=== PATIENT | male | born 1985 | race Two or more races ===

== ENCOUNTER 2023-06-16 08:54 | Day surgery (SDC) | payer MEDICAID, SELFPAY ==
[2023-06-16] MEDS: LACTATED RINGERS 1000ML 1,000 ML 100 ML IV (09:08)
[2023-06-16 09:13] VITALS: BP 125/71; PULSE 53; RESP 18; TEMP 36.3; O2SAT 97; BMI 34.3
--- NOTE | 2023-06-16 10:24 | EXP.ANES.CKL ---
[facility] Disclaimer: The information contained in this section may have been updated after the patient was seen, as this information can be updated by other users. Medical History Hx of hiatal hernia Surgical History History of repair of hiatal hernia Family History Mother Diabetes Social History Smoking Status: Never smoker alcohol intake: never substance use type: denies use current occupational status: employed Travel in the last 8 weeks: None adopted: No caregiver/support person: No foster care: No household members: spouse housing: house lives independently: No marital status: service: No [employer]: No pets and animals: No Hx Recent Travel: No sexually active: Yes caffeine: Yes [facility] Anesthesia Checklist Patient Identification Patient Identification: Arm Band and Verbal (Name & ) Structural Data Admitted From: Home Planned Operative Procedure/s: EGD dilation Consent for Planned Operative Procedure(s) Verified: Yes NPO Status Verified Time NPO: 00:00 Airway Assessment Mallampati Score:: Class II C-Spine Mobility Assessed: Yes TMJ Mobility Assessed: Yes Dentition: Good Dentition Neurological Assessment Level of Consciousness: Awake Hx Seizures: No Numbness or tingling in extremities: No Anesthesia Plan Anesthesia Risk discussed: Yes Anesthesia Plan: Verified ASA Class: II Anesthesia Type: MAC
[2023-06-16 10:30] VITALS: O2SAT 98
--- NOTE | 2023-06-16 10:36 | HMH.SCOPE ---
Procedure: Date: 06/16/23 Patient Date of :: 1985 Procedure Performed:: EGD & biopsies, bougie dilation Indications:: Dyspepsia, History of H.pylori infections Performing Provider:: Yony Cooper MD Referring Provider:: Nancie Cooper APRN Sedation:: Propofol Procedure:: The gastroscope was gently passed through the incisoral orifice into the oral cavity and under direct visualization the esophagus was intubated. The endoscope was passed down the esophagus, through the stomach, and into the duodenum. Color, texture, mucosa, and anatomy of the esophagus, stomach, and duodenum were carefully examined with the scope. Findings:: Oropharynx: normal Esophagus: normal EG Junction: intact with previous fundelplication noted. Empiric bougie dilation performed. 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
[2023-06-16 10:38] VITALS: BP 106/61; PULSE 101; RESP 10; TEMP 36.1; O2SAT 96
[2023-06-16 10:48] VITALS: BP 102/63; PULSE 78; RESP 12; O2SAT 5
[2023-06-16 10:58] VITALS: BP 109/69; PULSE 72; RESP 12; O2SAT 96
[2023-06-16 11:08] VITALS: BP 110/78; PULSE 77; RESP 16; O2SAT 98
--- NOTE | 2023-06-16 11:49 | SUR.PHASEII ---
1046: Oral airway placed in postop upon arrival to [facility] by anesthesia Christina MCKEON. O2sat 68% room air before placing airway and nasal cannula at 5L. O2 sat up to 95% with intervention. Will continue to monitor.
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
== END 2023-06-16 11:15 | disposition home or self-care (01) ==
PROVIDERS: Visit Provider Internal Medicine Gastroenterology
PROC: 0DJ08ZZ Inspection of Upper Intestinal Tract, Via Natural or Artificial Opening Endoscopic (ICD-10-PCS; CPT 43235; principal; 2023-06-16 10:00)
DX: R10.13 Epigastric pain (principal); Z86.19 Personal history of other infectious and parasitic diseases; K29.80 Duodenitis without bleeding; K29.50 Unspecified chronic gastritis without bleeding
CPT/HCPCS: 43239; 43248; J2704

== ENCOUNTER 2024-10-03 11:21 | Day surgery (SDC) | payer MEDICAID, SELFPAY ==
[2024-10-01 17:22] VITALS: BMI 36.4
--- NOTE | 2024-10-03 11:31 | P.HP_ITS ---
History of Present Illness *Admission Date: 10/03/24 *Reason for visit:: Epigastric/left upper quadrant abdominal pain *History of present illness: Mr. Smyth is a 39-year-old gentleman is here for diagnostic EGD. The patient reports bloating, epigastric pain and left upper quadrant abdominal pain. He did have a prior Jesus fundoplication and feels as if he cannot belch. He did have an EGD with Dr. Cooper. The examination is deemed medically necessary for diagnostic EGD. The patient has been seen, interviewed and examined prior to the procedure by both myself and the anesthesia provider. [facility] Disclaimer: The information contained in this section may have been updated after the patient was seen, as this information can be updated by other users. Medical History Hx of hiatal hernia Surgical History History of repair of hiatal hernia Family History Mother Diabetes Social History (Updated 10/03/24 @ 12:30 by Bertha Cage RN) Smoking Status: Never smoker alcohol intake: never substance use type: denies use current occupational status: employed Travel in the last 8 weeks?: None adopted: No caregiver/support person: No foster care: No household members: spouse housing: house lives independently: No marital status: service: No fpc: No pets and animals: No Hx Recent Travel: No sexually active: Yes caffeine: Yes Have you lived/traveled outside [place] in past 30 days?: No Contact w/someone who lives/traveled outside US past 30 days?: No Exposure to someone with infectious disease in past 14 days?: No Do you have a fever (greater than 100.4 F or 38 C)?: No Have you tested positive for COVID-19?: No Exposed to someone with COVID-19 in past 14 days?: No Do you have a sore throat?: No Do you have a cough?: No Do you have any weakness?: No Are you experiencing any nausea/vomitting?: No Do you have any diarrhea?: No Are you experiencing any unusual bleeding?: No Do you have any muscle aches/pain?: No Do you have any abdominal pain?: No Are you experiencing loss of taste or smell?: No Other Medical History Have you received the Pneumonia Vaccine: No Review of Systems Review of Systems Review of systems (narrative): Negative *Cardiovascular Comments: Negative *Gastrointestinal Comments: Negative *Genitourinary Comments: Negative *Musculoskeletal Comments: Negative *Neurologic Comments: Negative Meds Home Medications and Allergies Home Medications ?Medication ?Instructions ?Recorded ?Confirmed ?Type No Known Home Medications 09/20/24 06/0 06/26 History New Prescriptions to Start Prescriptions: Allergies Allergy/AdvReac Type Severity Reaction Status Date / Time No Known Allergies Allergy Verified 09/20/24 09:36 Exam Data for Last 24 hours I & O for Last 24 hours: Intake & Output 09/30/24 10/01/24 10/02/24 10/03/24 23:59 23:59 23:59 23:59 Weight 226 lb *Routine HEENT Exam Head: Present normocephalic Eye: Present EOMI and PERRL ENT: Present mucous membranes moist *Routine Neck Exam Neck: Present supple *Routine Respiratory Exam Respiratory: Present CTA bilaterally *Routine Cardiovascular Exam Cardiovascular: Present RRR *Routine Abdominal Exam Abdominal: Present soft and normoactive bowel sounds; Absent tenderness *Routine Rectal Exam Rectal:: deferred *Routine Genitalia Exam Genitalia:: deferred *Routine Extremities Exam Extremities: Absent cyanosis, clubbing or edema *Routine Skin Exam Skin: Present warm; Absent rash *Routine Neurological Exam Neurological: Present alert and oriented X3 Assessment and Plan *Assessment and plan (1) LUQ pain: Status: Acute Category: Medical Code(s): R10.12 - Left upper quadrant pain (2) Bloating: Status: Acute Category: Medical Code(s): R14.0 - Abdominal distension (gaseous) (3) Epigastric pain: Status: Acute Category: Medical Code(s): R10.13 - Epigastric pain Plan A/P: 1. Left upper quadrant abdominal pain and some epigastric pain with bloating is the preprocedural diagnosis. The patient will be anesthetized/sedated using MAC sedation. The patient has been seen and examined. Cardiac and lung assessment prior to the examination is stable. Proceed with planned diagnostic EGD.
[2024-10-03 12:31] VITALS: BP 130/86; PULSE 55; RESP 16; TEMP 36.2; O2SAT 94
[2024-10-03] MEDS: LACTATED RINGERS 1000ML 1,000 ML 999 ML IV (12:42)
--- NOTE | 2024-10-03 12:46 | EXP.ANES.CKL ---
[facility] Disclaimer: The information contained in this section may have been updated after the patient was seen, as this information can be updated by other users. Medical History Hx of hiatal hernia Surgical History History of repair of hiatal hernia Family History Mother Diabetes Social History (Updated 10/03/24 @ 12:30 by Bertha Cage RN) Smoking Status: Never smoker alcohol intake: never substance use type: denies use current occupational status: employed Travel in the last 8 weeks?: None adopted: No caregiver/support person: No foster care: No household members: spouse housing: house lives independently: No marital status: service: No prison: No pets and animals: No Hx Recent Travel: No sexually active: Yes caffeine: Yes Have you lived/traveled outside US in past 30 days?: No Contact w/someone who lives/traveled outside US past 30 days?: No Exposure to someone with infectious disease in past 14 days?: No Do you have a fever (greater than 100.4 F or 38 C)?: No Have you tested positive for COVID-19?: No Exposed to someone with COVID-19 in past 14 days?: No Do you have a sore throat?: No Do you have a cough?: No Do you have any weakness?: No Are you experiencing any nausea/vomitting?: No Do you have any diarrhea?: No Are you experiencing any unusual bleeding?: No Do you have any muscle aches/pain?: No Do you have any abdominal pain?: No Are you experiencing loss of taste or smell?: No [facility] Anesthesia Checklist Patient Identification Patient Identification: Arm Band and Verbal (Name & ) Structural Data Admitted From: Home Planned Operative Procedure/s: EGD Verified Documents: Surgical Consent NPO Status Verified Time NPO: 00:00 Additional verifications Anesthesia Reactions: No Hx Blood Transfusions: No Airway Assessment Mallampati Score:: Class II C-Spine Mobility Assessed: Yes TMJ Mobility Assessed: Yes Dentition: Good Dentition Neurological Assessment Level of Consciousness: Awake, Alert and Appropriate Hx Seizures: No Numbness or tingling in extremities: No Anesthesia Plan Anesthesia Plan: Verified ASA Class: I Anesthesia Type: MAC
--- NOTE | 2024-10-03 13:06 | HMH.PROCNOTE ---
[facility] Procedure Note Date: 10/03/24 Time: 13:11 Procedure Note:: Upper Endoscopy Procedure Report: Esophagogastroduodenoscopy with cold biopsies Endoscopost: Nick Sousa II, MD Referring Physician: HERNAN Boggs Date of Procedure: October 03, 2024 Equipment: Olympus GIF 190 standard upper endoscope Sedation: MAC sedation Indications: Mr. Smyth is a 39-year-old gentleman with left upper quadrant and epigastric abdominal pain and bloating. The patient has been getting worse over the years and this has been going on for 10 years. He did have a Jesus fundoplication 2 years ago in [place]. He reports left upper quadrant abdominal pain that can radiate through to his back. Lying down makes this better. His symptoms were worsened after the hiatal hernia repair/fundoplication. Now he feels as if he cannot belch to relieve his symptoms. He does have some abdominal distention and bloating. He also reports some gassiness. He reports regular bowel function. He did have an upper endoscopy (Yony Cooper MD) in June 2019 for and had some mild chronic gastritis. The patient does report some early satiety but no nausea. He has no heartburn or dysphagia. Procedure: Prior to the procedure, a history and physical exam was performed, and patient's medications and allergies were reviewed. The risks, benefits and alternatives of the sedation and procedure were discussed with the patient. All questions were answered and informed consent was obtained. The patient was brought to the procedure room. Patient identification and proposed procedure were verified by the physician and the nurse. The patient was placed in a left lateral decubitus position and the scope was passed under direct vision. Throughout the procedure, the patient's blood pressure, pulse, and oxygen saturations were monitored continuously. The upper GI endoscopy was accomplished without difficulty. The patient tolerated the procedure well. Findings: The scope was passed directly into the upper esophagus and advanced to the fourth portion of duodenum and proximal jejunum. Cold biopsies were taken x 2 of the proximal jejunum for the disaccharidase assay. The proximal jejunum, post bulbar duodenum, ampulla and duodenal bulb were normal with normal mucosa and conniventes. The scope was withdrawn through a normal duodenal bulb and pylorus into the stomach. There was very mild antral gastropathy and very mild proximal chronic gastritis. There were no ulcerations or erosions. Biopsies were taken along the gastric lesser curvature. Upon retroflexion there was an intact fundoplication. The scope was then withdrawn into the esophagus. There was no evidence of reflux esophagitis or West's. The remainder of the esophageal mucosa was normal. Impression: 1. Intact fundoplication 2. Mild antral gastropathy and mild chronic gastritis Plan: I will follow-up the biopsies and disaccharidase assay. Most of his symptoms of dyspepsia are related to and driven by lower intestinal gas pressure gradients/high gas pressure buildup resulting in backflow of bile and peptic fluid from the duodenum into the stomach (duodenal reflux). This gas production (carbon dioxide, hydrogen, methane, etc.) from the lower intestinal tract is the byproduct of colonic bacterial fermentation. This colonic fermentation occurs when there is more carbohydrate (dietary starches, sugars and high residue plant fiber) substrate that does not get digested (in the middle or small intestine) or occurs when there is colonic fecal buildup and colonic bacterial overgrowth. This indeed leads to bloating and the gas pressure buildup with gas pressure gradients that do drive backflow and dyspepsia. I will discuss the findings with the patient and family and discuss treatment options.
[2024-10-03 13:11] VITALS: BP 111/72; PULSE 76; RESP 16; TEMP 36.4; O2SAT 93
[2024-10-03 13:20] VITALS: BP 116/73; PULSE 85; RESP 16; O2SAT 95
[2024-10-03 13:30] VITALS: BP 115/74; PULSE 78; RESP 16; O2SAT 96
[2024-10-03 13:40] VITALS: BP 116/72; PULSE 74; RESP 16; O2SAT 96
[2024-10-08 09:18] LABS: Disclaimer Notes (.); Interpretation Notes (.); Lactase 3.63 (>/= 14.0); Maltase 193.71 (>/= 110.0); Palatinase 12.83 (>/= 8.5); Reference Notes (.); Sucrase 43.1 (>/= 25.0)
== END 2024-10-03 13:44 | disposition home or self-care (01) ==
PROVIDERS: PCP Nurse Practitioner Family; Visit Provider Internal Medicine Gastroenterology
PROC: 0DJ08ZZ Inspection of Upper Intestinal Tract, Via Natural or Artificial Opening Endoscopic (ICD-10-PCS; CPT 43239; principal; 2024-10-03 11:30)
DX: K29.50 Unspecified chronic gastritis without bleeding (principal); K31.9 Disease of stomach and duodenum, unspecified; R10.9 Unspecified abdominal pain; R14.0 Abdominal distension (gaseous); R10.12 Left upper quadrant pain
CPT/HCPCS: 43239; 82657; J7120